=== PATIENT | female | born 1990 | race Caucasian/White ===

== ENCOUNTER 2019-05-08 16:44 | Emergency (ER) | payer SELFPAY ==
[~2019-05-08] VITALS: Ht 162.6 cm; Wt 68.0 kg
== END 2019-05-08 16:58 | disposition home or self-care (01) ==
LOC: ED 16:44
DX: N92.6 Irregular menstruation, unspecified (principal)

== ENCOUNTER 2021-05-22 21:23 | Emergency (ER) | payer OTHER ==
[~2021-05-22] VITALS: Ht 162.6 cm; Wt 68.0 kg
[~2021-05-22 21:23] MED LIST: GABAPENTIN300 MG PO; LAMOTRIGINE200 MG PO; SUBOXONE 8 MG-1 EAC1 SL
[2021-05-22] MEDS ORDERED: LAMICTAL200 MG PO (21:42)
[2021-05-22] MEDS ORDERED: NEURONTIN100 MG PO (21:43)
[2021-05-22] MEDS ORDERED: SUBOXONE 8 MG-1 EAC1 SL (21:43)
[2021-05-22] MEDS ORDERED: OMEPRAZOLE20 MG PO (21:43)
== END 2021-05-23 00:01 | disposition left against medical advice (07) ==
LOC: ED 21:23
DX: R10.9 Unspecified abdominal pain (principal); Z87.891 Personal history of nicotine dependence; Z88.2 Allergy status to sulfonamides; Z79.899 Other long term (current) drug therapy
CPT/HCPCS: 80053; 81001; 84703; 85025; 99284